=== PATIENT | male | born 1965 | race Caucasian/White ===

== ENCOUNTER 2017-11-17 18:36 | Emergency (ER) | payer OTHER ==
[~2017-11-17] VITALS: Ht 185.4 cm; Wt 113.4 kg
[2017-11-17] MEDS ORDERED: ZANTAC 150MG T150 MG PO (18:48)
[2017-11-17] MEDS ORDERED: ERYTHROMYCIN E3.5 G2 OPHTHALMIC (19:54)
[2017-11-17 20:03] VITALS: BP 142/80
== END 2017-11-17 20:04 | disposition home or self-care (01) ==
LOC: M.ERS 18:36
DX: S05.02XA Injury of conjunctiva and corneal abrasion without foreign body, left eye, initial encounter (principal); F17.200 Nicotine dependence, unspecified, uncomplicated; X58.XXXA Exposure to other specified factors, initial encounter; Y93.89 Activity, other specified; Y92.89 Other specified places as the place of occurrence of the external cause; Y99.8 Other external cause status